=== PATIENT | female | born 1950 | race Caucasian/White ===

== ENCOUNTER 2016-09-01 13:51 | Emergency (ER) | payer OTHER ==
[~2016-09-01] VITALS: Ht 160 cm; Wt 69.0 kg
[2016-09-01 13:53] VITALS: Ht 160 cm; Wt 69.0 kg
--- NOTE | 2016-09-01 16:20 | ERD ---
ER Documentation Chief Complaint Date/Time DATE: 09/01/16 TIME: 16:18 Chief Complaint pain behing lt knee x 3 weeks HPI Patient is a 66-year-old female who presents to the ED with left posterior knee pain 3 weeks. She denies any triggering or onset trauma. She states that she has pain when she extends her leg straight and when she bends. She states that she did go to her primary care today who sent her here for an ultrasound to rule out DVT. She denies any fever or chills. She denies any pain in her calves. She denies pain above or below her knee. She denies recent travel, recent surgeries or prolonged immobility. Denies chest pain, cough, shortness of breath or difficulty breathing. Denies headache or dizziness. ROS All systems reviewed and are negative except as per history of present illness. Medications Home Meds Active Scripts Naproxen* (Naprosyn*) 500 Mg Tablet, 500 MG PO BID Y for PAIN AND/OR INFLAMMATION, #15 TAB Prov:DAVID CASE PA-C 09/01/16 PMhx/Soc History of Surgery: No Anesthesia Reaction: No Hx Neurological Disorder: No Hx Respiratory Disorders: No Hx Cardiac Disorders: No Hx Psychiatric Problems: No Hx Miscellaneous Medical Probl: No Hx Alcohol Use: No Hx Substance Use: No Hx Tobacco Use: No Smoking Status: Never smoker Physical Exam Vitals Vital Signs Date Time Temp Pulse Resp B/P Pulse Ox O2 Delivery O2 Flow Rate FiO2 09/01/16 13:53 97.8 80 18 129/75 99 Physical Exam GENERAL: Well-developed, well-nourished female. Appears in no acute distress. NECK: Supple. No lymphadenopathy or thyromegaly. No meningismus. negative kernig. negative brudinski. LUNG: Clear to auscultation bilaterally. No rhonchi, wheezing, rales or coarse breath sounds. HEART: Regular rate and rhythm. No murmurs, rubs or gallops. BACK: No midline tenderness. Extremities: Equal pulses bilaterally. No peripheral clubbing, cyanosis or edema. No unilateral leg swelling. Negative Homans sign. NEUROLOGIC: Alert and oriented. Moving all four extremities. 5/5 strength in all extremities. Normal speech. Steady gait. SKIN: Normal color. Warm and dry. No rashes or lesions. Capillary refill < 2 seconds Procedures/[facility] ER COURSE: I kept the patient and/or family informed of laboratory and diagnostic imaging results throughout the emergency room course. IMAGING STUDIES [place] [address] Radiology Main Line: [phone] DIAGNOSTIC IMAGING REPORT Patient: FERNIE SY : 1950 Age: 66 Sex: F MR #: [id number] DOS: 09/01/16 1551 Ordering MD: DAVID CASE PA-C Location: FTE Room/Bed: PROCEDURE: XR left knee. CLINICAL INDICATION: Knee pain TECHNIQUE: AP, lateral and oblique views are available for review. COMPARISON: None available FINDINGS: There is mild osteoarthrosis involving the medial tibial femoral compartment. This is associated with joint space narrowing and osteophytosis. There is otherwise normal mineralization, architecture and alignment. No fractures are identified. No osseous lesions are identified. The soft tissues are unremarkable. IMPRESSION: Mild osteoarthrosis involving the medial tibial femoral compartment. RPTAT: HGDB .Kolton Marino MD, MD Date Time Electronically viewed and signed by .Kolton Marino MD, on 09/01/2016 16:22 .B/ CC: DAVID CASE PA-C [place] [address] Radiology Main Line: [phone] DIAGNOSTIC IMAGING REPORT Patient: FERNIE SY : 1950 Age: 66 Sex: F MR #: [id number] DOS: 09/01/16 0000 Ordering MD: DAVID CASE PA-C Location: FTE Room/Bed: PROCEDURE: US left lower extremity veins. CLINICAL INDICATION: Left leg pain and swelling. Left knee pain. TECHNIQUE: Multiple longitudinal and transverse images of the left lower extremity veins were obtained with dillard scale and color Doppler imaging. The common femoral vein, femoral vein, and popliteal vein were evaluated. 2D grayscale measurements with compression sonography, pulsed Doppler, color Doppler, and pulsed Doppler with augmentation. COMPARISON: No prior studies are available for comparison. FINDINGS: The left common femoral, femoral and popliteal veins are normally compressible throughout. Color flow demonstrates normal filling of the vessels. Normal waveforms are visualized and there is normal response to augmentation. IMPRESSION: 1. No evidence of deep vein thrombosis involving the left lower extremity. RPTAT: QQ .Yan Roman MD, MD Date Time Electronically viewed and signed by .Yan Roman MD, on 09/01/2016 16:29 .R/ CC: DAVID CASE PA-C MEDICAL DECISION MAKING: This is a 66-year-old female who presents with left posterior knee pain 3 weeks. Vital signs were reviewed. Patient is afebrile. Patient is not hypoxic. Patient is not toxic or ill-appearing. Patient likely has osteoarthritis of her left knee. X-rays of by radiologist SHOWS Mild osteoarthrosis involving the medial tibial femoral compartment. Ultrasound report is unremarkable. Low suspicion for dislocation, fracture, septic joint, compartment syndrome, osteomyelitis, avascular necrosis, DVT, Achilles tendon rupture, cellulitis. At this time, unable to rule out any tendon and ligament injuries. Patient was given an Omar wrap. Neurovascularly intact post Omar wrap placement. DISCHARGE: At this time, patient is stable for discharge and outpatient management with no new complaints during the ER course. [facility] copy of her x-ray and ultrasound report.. Patient will be discharged home with instructions to recheck for new or worsening symptoms such as fever, nausea, weakness, LOC and to follow up with primary care in the next 1-2 days. Patient was advised to return to the ER for any new or worsening symptoms. Plan was discussed and patient and/or family understands and agrees. Home instructions were given. Departure Diagnosis: Primary Impression: Posterior knee pain Laterality: left Qualified Code: M25.562 - Posterior knee pain, left Condition: Stable DAVID CASE PA-C Sep 01, 2016 16:20
--- NOTE | 2016-09-01 16:29 | RADRPT ---
PROCEDURE: US left lower extremity veins. CLINICAL INDICATION: Left leg pain and swelling. Left knee pain. TECHNIQUE: Multiple longitudinal and transverse images of the left lower extremity veins were obta ined with dillard scale and color Doppler imaging. The common femoral vein, femoral vein, and popliteal vein were evaluated. 2D grayscale measurements with compression sonography, pulsed Doppler, color D oppler, and pulsed Doppler with augmentation. COMPARISON: No prior studies are available for comparison. FINDINGS: The left common femoral, femoral and popliteal veins are normally compressible throughout. Color fl ow demonstrates normal filling of the vessels. Normal waveforms are visualized and there is normal response to augmentation. IMPRESSION: 1. No evidence of deep vein thrombosis involving the left lower extremity. RPTAT: QQ .Yan Roman MD, MD Date Time Electronically viewed and signed by .Yan Roman MD, MD on 09/01/2016 16:29 .R/
[2016-09-01] MEDS ORDERED: NAPR-260 PO (16:49)
== END 2016-09-01 17:19 | disposition home or self-care (01) ==
LOC: FTE 13:51
DX: M25.562 Pain in left knee (principal)
CPT/HCPCS: 73562; 93971

== ENCOUNTER 2016-11-12 06:56 | Day surgery (SDC) | payer OTHER ==
[~2016-11-12] VITALS: Ht 160 cm; Wt 69.9 kg
[~2016-11-12 06:56] MED LIST: NAPR-260 PO
[2016-11-12 07:55] VITALS: Ht 160 cm; Wt 69.9 kg
[2016-11-12] MEDS ORDERED: FOSAMAX (08:08)
[2016-11-12 08:50] VITALS: BP 114/87; PULSE 66; RESP 12
[2016-11-12] MEDS ORDERED: MIDAZOLAM 1 MG/ML 2 ML INJ ONE ×3 (09:24)
[2016-11-12] MEDS ORDERED: FENTAnyl 50 MCG/ML VIAL ONE (09:24)
[2016-11-12 09:47] VITALS: BP 119/73; PULSE 56; RESP 15
--- NOTE | 2016-11-12 11:07 | GILP ---
DATE OF PROCEDURE: 11/12/2016 NAME OF PROCEDURES: 1. Esophagogastroduodenoscopy and biopsy. 2. Colonoscopy and biopsy. SURGEON: Shelby Brennan MD. PREOPERATIVE DIAGNOSES: 1. Abdominal pain. 2. Screening colonoscopy. POSTOPERATIVE DIAGNOSES: 1. Gastritis with erosions. 2. Gastric mucosal biopsies were taken for Helicobacter pylori test. 3. Colonoscopy all the way to the cecum. 4. Small sigmoid colon polyp was removed using the biopsy forceps. 5. Internal hemorrhoids. INDICATION FOR THE PROCEDURE: Ms. Jessica Hills is a 66-year-old female patient who had upper abdo curtis pain, not responding to therapy. She also needed screening colonoscopy. The procedures and possible complications were well explained to the patient. She understood and co nsented to the procedures. DESCRIPTION OF PROCEDURE: Under the influence of fentanyl and Versed, the gastroscope was carefully introduced into the esophagus and under direct vision, it was advanced to the stomach and through t he pylorus into the duodenal bulb and descending duodenum. FINDINGS: ESOPHAGUS: The mucosa was normal. STOMACH: The patient had gastritis. Gastric mucosal biopsies were taken for H. pylori test. DUODENUM: Normal. The colonoscope was carefully introduced in the rectum and under direct vision, it was advanced all the way to the cecum. FINDINGS: The patient had a small sigmoid colon polyp and it was removed using the biopsy forceps. She had internal hemorrhoids. She tolerated the procedures very well and there was no complication from the procedures. At the en d of the procedures, she was awake with stable vital signs and she was discharged home to the care o f her family. IMPRESSION: Please see postoperative diagnosis. PLAN: 1. Omeprazole 40 mg p.o. q.a.m. 2. Await histopathology reports. 3. Next screening colonoscopy in 10 years. Dictated By: SHELBY VELA/SHANNA Conf#: [id number] DID#: [id number]
== END 2016-11-12 10:22 | disposition home or self-care (01) ==
LOC: GIL 06:56
PROVIDERS: ATTEND Internal Medicine Gastroenterology
DX: Z12.11 Encounter for screening for malignant neoplasm of colon (principal); D12.5 Benign neoplasm of sigmoid colon; K29.60 Other gastritis without bleeding; K64.8 Other hemorrhoids
CPT/HCPCS: 43239; 45380; 87081; 88305; J2250; J3010; Z7610

== ENCOUNTER 2017-03-11 06:14 | Day surgery (SDC) | payer OTHER ==
[2017-03-10 10:35] VITALS: BMI 27.3
--- NOTE | 2017-03-10 18:13 | PREOPHP ---
DATE OF ADMISSION: 03/11/2017 HISTORY OF PRESENT ILLNESS: This is a 66-year-old patient who is going to be admitted for a diagnos tic arthroscopy, partial medial meniscectomy, possible repair and application of Frazier dressing. This patient has been experiencing knee pain for quite a while. Conservative treatment resulted in limited benefit to the patient. The patient has requested surgical intervention. PAST MEDICAL HISTORY: Unremarkable and noncontributory. SOCIAL HISTORY: Nonsmoker, nondrinker. FAMILY HISTORY: Negative. ALLERGIES: NO HISTORY OF ALLERGY TO MEDICATION. MEDICATIONS: 1. Sulindac. 2. Postoperatively, she was given Tylenol No. 3 and Bactrim-DS. REVIEW OF SYSTEMS: Limited to present illness. PHYSICAL EXAMINATION: SKIN: Within normal limits. EENT: PERRLA. HEAD AND NECK: Normocephalic. Trachea midline. Bilateral symmetrical carotid pulses. No mass, no bruit, no lymphadenopathy. CARDIOVASCULAR: Normal sinus rhythm. S1, S2 normal. No murmur. No JVD. No peripheral edema. LUNGS: Clear. ABDOMEN: Soft, scaphoid. No organomegaly. No mass. Bowel sounds present. GENITOURINARY AND RECTAL: Not done, not pertinent to this admission. MUSCULOSKELETAL: Height of 5 feet 3 inches, weighing 169 pounds. HEAD AND NECK: Unremarkable. Upper extremities normal with normal neuromuscular examination. Spin e range of motion is about 85%. Mild tenderness over the L4-L5 facet joints. Hips showed normal range of motion. Knees are symmetrical in appearance, muscle atrophy. Range of motion 0 to 25 degrees for right knee. There is tenderness over the medial patellofemoral joint zhang e, medial tibiofemoral joint line and some tenderness over the patellar tendon. NEUROLOGIC: Normal. MRI has indicated torn medial meniscus, joint effusion and chondral loss. DIAGNOSES 1. Torn medial meniscus. 2. Chondral loss, possible torn lateral meniscus. 3. 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 PLAN: Treatment plan, alternatives, risks and benefits discussed. The patient understands possible risks and complications from surgery such as infection, bleeding, nerve damage, vascular damage, po ssibility of venous thrombosis, pulmonary embolism, hypersensitivity and even . Also the patie nt understands the ideal result may not be obtained depending on known or unknown factors and actual findings. Formal history and physical is supposed to be done by PCP. Formal H and P is supposed to be done by PCP. Dictated By: CALEB FUENTES/SHANNA Conf#: [id number] DID#: [id number]
[2017-03-11] VITALS (15 sets, daily range): BP systolic 119–137; BP diastolic 69–81; PULSE 82–112; RESP 11–18; Ht 160 cm; Wt 69.0 kg
[~2017-03-11] VITALS: Ht 160 cm; Wt 69.0 kg
[~2017-03-11 06:14] MED LIST changes: +FOSAMAX; -NAPR-260 PO
[2017-03-11] MEDS ORDERED: OMEP40CA6 PO (06:49)
[2017-03-11] MEDS ORDERED: HYDR-906 PO (06:49)
[2017-03-11] MEDS ORDERED: SULI150T39 PO (06:49)
[2017-03-11] MEDS ORDERED: SULF1TAB31 PO (06:51)
[2017-03-11] MEDS ORDERED: SODIUM CL BACTERIOSTATIC 30 ML INJ ONE (06:58)
[2017-03-11] MEDS ORDERED: morphine SULFATE/PF (10 MG/10 ML) INJ ONE (06:59)
[2017-03-11] MEDS ORDERED: EPINEPHrine 1 MG/ML 30 ML INJ ONE (06:59)
[2017-03-11] MEDS ORDERED: MIDAZOLAM 1 MG/ML 2 ML INJ ONE (07:21)
[2017-03-11] MEDS ORDERED: FENTAnyl 50 MCG/ML VIAL ONE ×2 (07:21→08:28)
[2017-03-11] MEDS ORDERED: PROPOFOL 20 ML ONE (07:21)
[2017-03-11] MEDS ORDERED: ONDANSETRON 4 MG INJ ONE (07:51)
[2017-03-11] MEDS ORDERED: CEFAZOLIN 1 GM INJ ONE (07:51)
[2017-03-11] MEDS ORDERED: METOCLOPRAMIDE 10 MG INJ ONE (07:52)
[2017-03-11] MEDS ORDERED: KETOROLAC 30 MG INJ ONE (07:52)
[2017-03-11] MEDS ORDERED: DEXAMETHASONE 4 MG/ML 1 ML INJ ONE (07:52)
[2017-03-11] MEDS ORDERED: morphine SULFATE/PF (10 MG/10 ML) INJ EPI ONE (08:13)
[2017-03-11] MEDS ORDERED: morphine (1 MG/ML) 10ML SYRINGE IV PRN ×3 (08:30)
[2017-03-11] MEDS ORDERED: EPHEDrine SULFATE 50 MG/5 ML SYG IV PRN (08:30)
[2017-03-11] MEDS ORDERED: DIPHENHYDRAMINE 50 MG INJ IV PRN (08:30)
[2017-03-11] MEDS ORDERED: LABETALOL HCL 20MG INJ IV PRN (08:30)
[2017-03-11] MEDS ORDERED: METOCLOPRAMIDE 10 MG INJ IV PRN (08:30)
[2017-03-11] MEDS ORDERED: FENTAnyl 50 MCG/ML VIAL IV PRN ×3 (08:30)
[2017-03-11] MEDS ORDERED: OXYCODONE/ACETAMINOPHEN (5/325) TAB PO PRN (08:30)
[2017-03-11] MEDS ORDERED: ONDANSETRON 4 MG INJ IV PRN (08:30)
[2017-03-11] MEDS ORDERED: MEPERIDINE 25 MG INJ IV PRN (08:30)
[2017-03-11] MEDS ORDERED: HYDROCODONE/APAP (5/325) TAB PO PRN ×2 (09:00)
--- NOTE | 2017-03-11 09:00 | SIPON ---
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
--- NOTE | 2017-03-11 10:33 | OPR ---
DATE OF OPERATION: PREOPERATIVE DIAGNOSES: Torn meniscus, plica syndrome, left knee. POSTOPERATIVE DIAGNOSES: Torn meniscus, plica syndrome, left knee. PROCEDURE: Diagnostic arthroscopy, partial lateral meniscectomy, plica band release, application of Frazier dressing. ANESTHESIA: General. BLEEDING: Minimal. COMPLICATIONS: None. OPERATIVE PROCEDURE: The patient was transferred to the operating room and placed on the OP table i n supine position and general anesthesia was induced. Ancef was given IV. The left lower extremity was prepped and draped in the routine fashion. Landmarks were marked and regular 2 anterior portal s, 1 medial, 1 lateral patellar tendon. Operative arthroscopy was commenced. Examination of suprap atellar pouch indicated the medial plica band and 2 fibrous bands going across the suprapatellar bonny ch extending to lateral side. Medial lateral gutter was cleared of loose body. Patella showed grad e III chondromalacia, especially at the central and also on the trochlear side. Going to the medial compartment, there was extensive grade III chondromalacia and chondral delamination. Meniscus in t he periphery was intact. It was thinned out in the middle third and posterior third especially. Ho wever, no tear was identified. ACL was intact. Lateral compartment indicates a grade II to III cho ndromalacia. Meniscus shows a small flap tear anteriorly and a small flap tear posteriorly. This w as taken care of by Arthrocare Bovie and there was some degenerative tear margins, which were shrunk by coagulation. There was absence of loose body in the medial and lateral compartments. Going to suprapatellar pouch we used the Arthrocare Bovie to release the medial and lateral plica band and it was removed partially. The knee was evacuated from debris with copious amount of saline irrigation . Portal was closed with benzoin and Steri-Strips. A 10 mg of Duramorph mixed with 10 mL of inject able saline was injected into the knee. Sterile Frazier dressing was applied. Procedure was terminat ed. General anesthesia was stopped. Patient was taken to recovery room in good and stable conditio n. Dictated By: CALEB FUENTES/SHANNA Conf#: [id number] DID#: [id number] CC: Roby Paige;*EndCC*
== END 2017-03-11 11:12 | disposition home or self-care (01) ==
LOC: SDS 06:14
PROVIDERS: ATTEND Internal Medicine Endocrinology, Diabetes & Metabolism
DX: S83.282A Other tear of lateral meniscus, current injury, left knee, initial encounter (principal); M67.52 Plica syndrome, left knee; X58.XXXA Exposure to other specified factors, initial encounter; Y93.89 Activity, other specified; Y92.89 Other specified places as the place of occurrence of the external cause
CPT/HCPCS: 29881; C1713; J0171; J0690; J1100; J1885; J2250; J2274; J2405; J2765; J3010; Z7512; Z7610